=== PATIENT | female | born 1960 | race Caucasian/White ===

== ENCOUNTER 2021-11-29 19:38 | Emergency (ER) | payer OTHER, SELFPAY ==
[2021-11-29 20:11] VITALS: BP 165/82; PULSE 75; RESP 18; TEMP 36.6; O2SAT 99; BMI 31.9
--- NOTE | 2021-11-29 20:56 | CRLHL7_ITS ---
For Patients: As a result of the Cures Act, medical imaging exams and procedure reports are released immediately into your electronic medical record. You may view this report before your referring provider. If you have questions, please contact your health care provider. INDICATION: Chest pain TECHNIQUE: Chest radiograph 1 view COMPARISON: 08/05/2018 FINDINGS: Mediastinum: The mediastinum is normal in appearance. The cardiac silhouette is mildly enlarged but may be accentuated by the portable technique. Lung: Both lungs are unremarkable in appearance. No sign of pleural effusion seen. No pneumothorax is identified. Bone and Soft tissue: Unremarkable for age. IMPRESSION: 1. The cardiac silhouette is mildly enlarged but may be accentuated by the portable technique. Dictated by Car Toledo MD @ 11/29/2021 10:11:59 PM Dictated by: Car Toledo MD @ 11/29/2021 22:12:01 (Electronically Signed)
[2021-11-29] MEDS: ASPIRIN 81 MG TAB.CHEW 324 MG PO (21:00)
--- NOTE | 2021-11-29 21:06 | ED.CHESTPAIN ---
HPI - Chest Pain General Time Seen by Provider: 20:40 Date Seen: 11/29/21 Chief Complaint: Dizziness/Vertigo Stated Complaint: lightheaded and dizzy Time Seen by Provider: 11/29/21 20:40 Source: patient, RN notes reviewed and old records reviewed Mode of arrival: ambulatory Limitations: no limitations History of Present Illness HPI narrative: Milagros is a very pleasant 61-year-old female nonsmoker previously healthy who comes to the emergency room with concerns regarding chest pain. Patient notes that yesterday evening she was experiencing substernal chest pain that she is so she did with stress. She notes that she took an ibuprofen and went to bed early and 2100 hours and slept well. This occurred while she was sitting on the couch. At work today she began noticing pain while she was walking. It was transient lasting possibly 30 seconds and went away when she stopped and slow down. Tonight she was on the couch again after work she suddenly became very nauseated hot with some slight diaphoresis. She also notes that she felt like she was tingling all over. She denied dizziness or vertigo. The room was not spinning. She notes that she was struggling to breathe when the pain was present but thinks this may be because she was a bit panicky. Three years ago she had some chest discomfort that was diagnosed as GERD. She was seen here at the [facility]. She does note that she is quite fatigued even though she has been sleeping well. She does not smoke and does not use alcohol. She has unknown cholesterol. No history of DVT in denies any unusual lower extremity swelling, recent extended car rides or plane trips. No early heart disease in family. She has been working hard today and thinks she may be slightly dehydrated but she was not dehydrated yesterday. She has had no cough cold congestion or COVID symptoms. She has no gallbladder nor appendix. Related Data Home Medications Medication Instructions Recorded Confirmed No Known Home Medications 11/29/21 11/29/21 Allergies Allergy/AdvReac Type Severity Reaction Status Date / Time No Known Drug Allergies Allergy Verified 11/29/21 20:13 Review of Systems Status of ROS Reports: 10 or more systems reviewed and unremarkable except as noted in History and below Const Reports: fatigue; Denies: fever, chills or change in weight Eyes Denies: change in vision or blurry vision ENMT Denies: throat pain or neck pain Cardio Reports: chest pain, lightheadedness and shortness of breath with exertion; Denies: palpitations, edema or swelling of feet/ankles Resp Reports: shortness of breath; Denies: cough GI Reports: nausea; Denies: abdominal pain or vomiting Denies: painful urination Musculo Denies: back pain or neck pain Integ/Breast Denies: rash Neuro Denies: headache Endo Reports: fatigue PFSH PFS Medical History No significant past medical history Surgical History History of appendectomy History of cholecystectomy Social History Smoking Status: Never smoker Do you use any of these nicotine containing products: None How often do you have a drink containing alcohol: never How often do you have six or more drinks on one occasion: Never AUDIT-C Alcohol total score: 0 Non-prescribed substance use: denies use Exam Narrative Exam Narrative: Past medical history: Appendectomy and cholecystectomy Family history maternal aunts and uncles with heart issues. Father is alive at 83 with no heart problems. Mother of Alzheimer's. She has a sister who in an MVA accident and her other sibling is healthy. Social history: No tobacco use Rare alcohol use No drug use Works at [employer] in [place]. Const Vital Signs, click to edit/add: Vital Signs - 24 hr 11/29/21 20:11 11/29/21 21:20 11/29/21 21:45 Temperature 97.8 F Pulse Rate [Right Pulse Oximeter] 75 76 70 Respiratory Rate 18 Blood Pressure [Right Upper Arm] 165/82 H Pulse Oximetry 99 97 98 11/29/21 22:16 Temperature Pulse Rate [Right Pulse Oximeter] 64 Respiratory Rate Blood Pressure [Right Upper Arm] Pulse Oximetry 97 Documenting provider has reviewed patient's vital signs: yes Common normals: no apparent distress and oriented x3 General appearance: cooperative, comfortable, well kempt and anxious (And somewhat fatigued) [facility] Common normals: normocephalic, head/scalp atraumatic and external ears normal Head and scalp: normocephalic and atraumatic Face and sinus: normal facial exam and face symmetric External ear: external ears normal Mouth: oral and palatal mucosa normal Throat: posterior oropharynx normal Eye Common normals: PERRL General eye: normal appearance of both eyes Pupil: PERRL Neck & C-Spine Common normals: full ROM, no lymphadenopathy and supple Resp Common normals: normal respiratory effort and clear to auscultation bilaterally Effort & inspection: able to speak in complete sentences Auscultation: clear to auscultation bilaterally Cardio Common normals: regular rate and regular rhythm Rate: regular rate Rhythm: regular rhythm GI Common normals: soft to palpation and non-tender Palpation: soft Common normals: no CVA tenderness Bladder/kidney exam: no CVA tenderness Back & Pelvis Common normals: no CVA tenderness Extremity Other: Scant peripheral edema. Neuro Common normals: oriented x3 Psych Common normals: mental status grossly normal and speech normal Appearance: well kempt Activity/motor behavior: appropriate eye contact Speech: normal speech Mood and affect: fearful Thought content: normal thought content Attention/concentration: attention grossly intact Memory/cognition: memory grossly intact Insight: insight good Judgement: judgment good Skin Common normals: no rashes or lesions noted General skin exam: no rashes or lesions noted Course Course Hospital Course: At this time differential diagnosis does include angina, acute coronary syndrome, esophagitis, stress and anxiety, panic attack, COVID. We will get a rule out chest pain protocol with 2 cardiac enzymes as well as 2 EKGs. Will also check CBC, comprehensive panel, urinalysis, chest x-ray, amylase, lipase. Will give aspirin 324 mg p.o. as well as 500 mL of normal saline. Patient will be placed on net developer contract and IV will be started. Reevaluation(s) Reevaluation #1: Patient has reassuring EKG, they a negative troponin and has not had pain while in the emergency room. Other laboratory values reassuring at this time. Vital Signs Vital signs: Initial Vital Signs Temperature 97.8 F 11/29/21 20:11 Temperature Source Temporal Artery Scan 11/29/21 20:11 Pulse Rate 75 11/29/21 20:11 Respiratory Rate 18 11/29/21 20:11 Blood Pressure 165/82 H 11/29/21 20:11 Blood Pressure Mean 109 11/29/21 20:11 Blood Pressure Position Sitting 11/29/21 20:11 Pulse Oximetry 99 11/29/21 20:11 Oxygen Delivery Method 11/29/21 20:11 Vital Signs Temperature 97.8 F 11/29/21 20:11 Pulse Rate 75 11/29/21 20:11 Respiratory Rate 18 11/29/21 20:11 Blood Pressure 165/82 H 11/29/21 20:11 Pulse Oximetry 99 11/29/21 20:11 Temperature 97.8 F 11/29/21 20:11 Pulse Rate 64 11/29/21 22:16 Respiratory Rate 18 11/29/21 20:11 Blood Pressure 165/82 H 11/29/21 20:11 Pulse Oximetry 97 11/29/21 22:16 MDM - Chest Pain MDM Narrative Medical decision making narrative: 1. Atypical chest pain-patient has had some chest pain but reassuring EKG and troponins. She was given aspirin this evening. Recommend continuing a baby aspirin daily until she sees a primary MD. I think she is an excellent candidate for a stress echo test. Until such time will avoid any situation where she has significantly elevated heart rate. Return to the emergency room should the chest pain return. Note for work tomorrow. 2. Disposition-patient is discharged home. Return for any recurrence of symptoms. Medical Records Data Attestation: I reviewed the patient's medical records. Lab Data Attestation: I reviewed the patient's lab results. Labs: Lab Results 11/29/21 11/29/21 11/29/21 Range/Units 21:15 21:15 21:15 WBC 6.05 (4.50-11.00) K/uL RBC 4.55 (4.00-5.20) m/uL Hgb 13.9 (12.0-16.0) gm/dL Hct 42.1 (33.0-51.0) % MCV 93 (80-100) fL MCH 31 (26-34) pg MCHC 33 (32-36) gm/dL RDW Coeff of Monique 12.9 (11.5-15.5) % Plt Count 223 (140-440) K/uL Neut % (Auto) 74.0 H (42.0-72.0) % Lymph % (Auto) 17.2 L (20-44) % [place] % (Auto) 7.3 (0.0-11.0) % Eos % (Auto) 0.8 (0.0-7.0) % Baso % (Auto) 0.5 (0.0-3.0) % Neut # (Auto) 4.50 (1.7-7.0) K/uL Lymph # (Auto) 1.00 (0.90-2.90) K/uL [place] # (Auto) 0.40 (0.00-0.90) K/UL Eos # (Auto) 0.05 (0.00-0.50) K/uL Baso # (Auto) 0.03 (0.00-0.30) K/uL Abs Immat Gran (auto) 0.01 (0.00-0.30) K/uL D-Dimer Quant (PE/DVT) (0.00-0.50) ug/ml Sodium 138 (135-149) mmol/L Potassium 3.8 (3.6-5.1) mmol/L Chloride 107 (96-114) mmol/L Carbon Dioxide 24 (20-32) mmol/L BUN 16 (7-30) mg/dL Creatinine 0.8 (0.5-1.5) mg/dL Estimated Creat Clear 62.63 Estimated GFR 85 ml/min Glucose 112 (60-115) mg/dL Calcium 8.9 (8.4-10.6) mg/dL Magnesium 2.2 (1.5-2.6) mg/dL Total Bilirubin 0.3 (0.1-1.5) mg/dL AST 24 (12-35) U/L ALT 15 (4-35) U/L Alkaline Phosphatase 104 (40-150) U/L Troponin I < 0.01 L (0.01-0.04) ng/mL Total Protein 7.8 (6.0-8.3) g/dL Albumin 4.4 (3.3-5.0) g/dL Amylase 74 (18-89) U/L Lipase 151 (23-300) U/L POC Troponin I 0.00 L (0.01-0.04) ng/ml 11/29/21 11/29/21 Range/Units 21:15 23:10 WBC (4.50-11.00) K/uL RBC (4.00-5.20) m/uL Hgb (12.0-16.0) gm/dL Hct (33.0-51.0) % MCV (80-100) fL MCH (26-34) pg MCHC (32-36) gm/dL RDW Coeff of Monique (11.5-15.5) % Plt Count (140-440) K/uL Neut % (Auto) (42.0-72.0) % Lymph % (Auto) (20-44) % [place] % (Auto) (0.0-11.0) % Eos % (Auto) (0.0-7.0) % Baso % (Auto) (0.0-3.0) % Neut # (Auto) (1.7-7.0) K/uL Lymph # (Auto) (0.90-2.90) K/uL [place] # (Auto) (0.00-0.90) K/UL Eos # (Auto) (0.00-0.50) K/uL Baso # (Auto) (0.00-0.30) K/uL Abs Immat Gran (auto) (0.00-0.30) K/uL D-Dimer Quant (PE/DVT) 0.38 (0.00-0.50) ug/ml Sodium (135-149) mmol/L Potassium (3.6-5.1) mmol/L Chloride (96-114) mmol/L Carbon Dioxide (20-32) mmol/L BUN (7-30) mg/dL Creatinine (0.5-1.5) mg/dL Estimated Creat Clear Estimated GFR ml/min Glucose (60-115) mg/dL Calcium (8.4-10.6) mg/dL Magnesium (1.5-2.6) mg/dL Total Bilirubin (0.1-1.5) mg/dL AST (12-35) U/L ALT (4-35) U/L Alkaline Phosphatase (40-150) U/L Troponin I < 0.01 L (0.01-0.04) ng/mL Total Protein (6.0-8.3) g/dL Albumin (3.3-5.0) g/dL Amylase (18-89) U/L Lipase (23-300) U/L POC Troponin I (0.01-0.04) ng/ml Imaging Data Chest x-ray: Attestation: I have reviewed the pertinent imaging results. My impression: No acute findings. Radiologist's impression: No acute findings. ECG Data Attestation: I personally reviewed and interpreted this ECG as follows: ECG interpretation date: 11/30/21 Interpretation: EKG 1. Shows normal sinus rhythm at a rate of 66. I do not note any acute ST or T-wave changes. EKG 2. Shows is normal sinus rhythm with rate of [address] or T-wave changes are noted. Discharge Plan Discharge Clinical Impression: Chest pain Patient Disposition: Home, Self-Care Condition: Unchanged Additional Instructions: I recommend continuing baby aspirin daily until you see a primary MD. I recommend a stress test with echocardiogram (ultrasound of the heart). Until such time no activity which significantly elevate your heart rate. If you have return of pain please come to the emergency room. Prescriptions: No Action No Known Home Medications 0RF Stand Alone Forms: [employer] Info Instructions
[2021-11-29] MEDS: 0.9 % SODIUM CHLORIDE 500 ML 500 ML IV (21:15)
[2021-11-29 21:20] VITALS: PULSE 76; O2SAT 97
[2021-11-29 21:29] LABS: Basophils Absolute Auto 0.03 K/uL (0.00-0.30); Basophils Percent Auto 0.5 % (0.0-3.0); Eosinophils Absolute Auto 0.05 K/uL (0.00-0.50); Eosinophils Percent Auto 0.8 % (0.0-7.0); Hematocrit 42.1 % (33.0-51.0); Hemoglobin* 13.9 gm/dL (12.0-16.0); Immature Granulocytes Abs Auto 0.01 K/uL (0.00-0.30); Lymphocytes Percent Auto 17.2 % (20-44); Mean Corpuscular HGB Conc 33 gm/dL (32-36); Mean Corpuscular Hemoglobin 31 pg (26-34); Mean Corpuscular Volume 93 fL (80-100); Monocytes Percent Auto 7.3 % (0.0-11.0); Platelet Count* 223 K/uL (140-440); RDW Coefficient of Variation % 12.9 % (11.5-15.5); Red Blood Count 4.55 m/uL (4.00-5.20); White Blood Count* 6.05 K/uL (4.50-11.00)
[2021-11-29 21:36] LABS: Slide Review Reflex No
[2021-11-29 21:40] LABS: Albumin* 4.4 g/dL (3.3-5.0)
[2021-11-29 21:41] LABS: Chloride* 107 mmol/L (96-114); Potassium* 3.8 mmol/L (3.6-5.1); Sodium* 138 mmol/L (135-149)
[2021-11-29 21:43] LABS: Amylase* 74 U/L (18-89); Aspartate Amino Transferase* 24 U/L (12-35); Bilirubin Total* 0.3 mg/dL (0.1-1.5); Carbon Dioxide* 24 mmol/L (20-32); Creatinine* 0.8 mg/dL (0.5-1.5); Est. Creatinine Clearance* 62.63; Estimated Glomerular Filt Rate 85 ml/min; Total Protein* 7.8 g/dL (6.0-8.3)
[2021-11-29 21:44] LABS: Alanine Aminotransferase* 15 U/L (4-35); Alkaline Phosphatase* 104 U/L (40-150); Blood Urea Nitrogen* 16 mg/dL (7-30); Calcium* 8.9 mg/dL (8.4-10.6); Glucose* 112 mg/dL (60-115); Lipase* 151 U/L (23-300); Magnesium* 2.2 mg/dL (1.5-2.6)
[2021-11-29 21:45] VITALS: PULSE 70; O2SAT 98
[2021-11-29 21:58] LABS: Troponin I* < 0.01 ng/mL (0.01-0.04)
[2021-11-29 22:10] LABS: D Dimer Quantitative* 0.38 ug/ml (0.00-0.50)
[2021-11-29 22:16] VITALS: PULSE 64; O2SAT 97
[2021-11-30 00:57] LABS: Troponin I* < 0.01 ng/mL (0.01-0.04)
[2021-11-30 01:09] VITALS: BP 146/84; PULSE 69; RESP 18; TEMP 36.6; O2SAT 97
[2021-11-30 01:10] VITALS: BP 146/87; PULSE 70; RESP 18; TEMP 36.6
== END 2021-11-30 01:11 | disposition home or self-care (01) ==
PROVIDERS: Emergency Provider Family Medicine
DX: R07.9 Chest pain, unspecified (principal)
CPT/HCPCS: 36415; 71045; 80053; 82150; 83690; 83735; 84484; 85025; 85379; 93005; 99285; A9270; J7120